=== PATIENT | female | born 1990 | race Caucasian/White ===

== ENCOUNTER 2019-03-04 11:29 | Inpatient (IN) | payer OTHER ==
[2019-03-04 13:41] LABS: Calcium 9.1 mg/dL (8.4-10.2); Potassium 4.8 mmol/L (3.5-5.1); Total Bilirubin 0.4 mg/dL (0.2-1.3); Total Protein 7.2 g/dL (6.3-8.2)
[2019-03-04 14:01] LABS: Partial Thromboplastin Time 27.5 sec (22.0-30.0); Prothrombin Time 10.5 sec (9.0-12.0)
[2019-03-04] MEDS: SODIUM CHLORIDE 0.9% 500 ML 500 ML IV SCH (14:01)
--- NOTE | 2019-03-04 14:04 | XR ---
EXAMINATION TYPE: XR forearm bilateral DATE OF EXAM: 03/04/2019 COMPARISON: NONE HISTORY: Pain Two views of the forearm obtained bilaterally. Within the soft tissues adjacent to the distal radius there is a linear metallic density in the soft tissue suspicious for foreign body. Within the proximal portions of the soft tissues of the left fore arm anterior to the radius there are 2 linear metallic density suspicious for foreign body. Adjacent soft tissue edema may been the basis of infectious etiology. Right forearm demonstrates a linear metallic density overlying the mid to distal soft tissues adjacen t to the ulna and just posterior on the lateral view suspicious for foreign body. No acute fracture or dislocation. No destructive changes. IMPRESSION: 1. Findings are suspicious for multiple foreign bodies as discussed involving both forearms. 2. Diffuse soft tissue edema involving the left forearm suspicious for infection and cellulitis.
[2019-03-04] MEDS ORDERED: LORazepam 2 MG/ML INJ IV STA (14:08)
--- NOTE | 2019-03-04 14:10 | ED ---
General Adult HPI <Cuba Harkins - Last Filed: 03/04/19 15:22> - General Source: patient, RN notes reviewed, old records reviewed Mode of arrival: ambulatory Limitations: no limitations <JasonJessica - Last Filed: 03/04/19 15:59> - General Chief complaint: Skin/Abscess/Foreign Body Stated complaint: Abcess Time Seen by Provider: 03/04/19 12:02 - History of Present Illness Initial comments: 28-year-old female presents emergency department today for evaluation with chief complaint of abscess on bilateral forearms. Patient reports she has history of IV drug use. She is recently has intake to [facility]. Patient has been on clindamycin for abscesses for the past 2 days. Patient reports she arrived to [place] yesterday. Patient states she is detoxing from heroin. Patient reports that she does have a history of endocarditis, she does not feel she has any symptoms or concern for endocarditis. This was on the same in from [facility]. Patient reports that she has a history of a heart transplant and is have the [facility] when she was 19 years old. (Jessica Gomez) - Related Data Home Medications Medication Instructions Recorded Confirmed Ascorbic Acid [Vitamin C] 500 mg PO BID@0600,1700 03/04/19 03/04/19 Aspirin [[place] Aspirin EC] 81 mg PO DAILY 03/04/19 03/04/19 Calcium Citrate/Vitamin D3 1 tab PO DAILY 03/04/19 03/04/19 [Calcitrate + Vit D Caplet] Clindamycin HCl [Cleocin] 300 mg PO QID 03/04/19 03/04/19 Diltiazem HCl [Cardizem CD] 240 mg PO DAILY@0600 03/04/19 03/04/19 Ferrous Sulfate [Iron (65 MG 325 mg PO BID@0600,1700 03/04/19 03/04/19 Elemental)] Furosemide [Lasix] 20 mg PO DAILY PRN 03/04/19 03/04/19 Gabapentin [Neurontin] 300 mg PO TID@0600,1530,2100 03/04/19 03/04/19 Magnesium Oxide [Su] 1,000 mg PO TID@0600,1500,2100 03/04/19 03/04/19 Multivitamins, Thera [Multivitamin 1 tab PO DAILY 03/04/19 03/04/19 (formulary)] Mycophenolate Mofetil [Cellcept] 250 mg PO BID@0600,1700 03/04/19 03/04/19 OXcarbazepine [Trileptal] 600 mg PO BID@0600,1700 03/04/19 03/04/19 Omeprazole 40 mg PO BID@0600,1700 03/04/19 03/04/19 Tacrolimus [Prograf] 3 mg PO DAILY@0600 03/04/19 03/04/19 Tacrolimus [Prograf] 4 mg PO DAILY@1700 03/04/19 03/04/19 Thiamine [Vitamin B-1] 100 mg PO DAILY 03/04/19 03/04/19 Thiamine [Vitamin B-1] 100 mg PO TID@0600,1530,2100 03/04/19 03/04/19 Vilazodone HCl [Viibryd] 40 mg PO DAILY@0600 03/04/19 03/04/19 Vitamin E (Dl,Tocopheryl Acet) 400 unit PO BID@0600,1700 03/04/19 03/04/19 [Vitamin E] Wellbutrin (Unknown Dose) 1 tab PO DAILY@0600 03/04/19 03/04/19 Allergies Allergy/AdvReac Type Severity Reaction Status Date / Time amoxicillin Allergy Unknown Verified 03/04/19 12:01 Childhood haloperidol [From Haldol] Allergy Verified 03/04/19 12:01 Penicillins Allergy Unknown Verified 03/04/19 12:01 Childhood Review of Systems ROS Other: All systems not noted in ROS Statement are negative. <Cuba Harkins - Last Filed: 03/04/19 15:22> ROS Other: All systems not noted in ROS Statement are negative. <Jessica Gomez - Last Filed: 03/04/19 15:59> ROS Statement: Those systems with pertinent positive or pertinent negative responses have been documented in the HPI. Past Medical History History of Any Multi-Drug Resistant Organisms: None Reported Additional Past Surgical History / Comment(s): heart transplant 2012 Past Psychological History: No Psychological Hx Reported Smoking Status: Current every day smoker Past Alcohol Use History: Rare Past Drug Use History: Heroin, Methamphetamine <Jessica Gomez - Last Filed: 03/04/19 15:59> General Exam Limitations: no limitations General appearance: alert, in no apparent distress Head exam: Present: atraumatic, normocephalic, normal inspection Eye exam: Present: normal appearance, PERRL, EOMI. Absent: scleral icterus, conjunctival injection, periorbital swelling ENT exam: Present: normal exam, mucous membranes moist Neck exam: Present: normal inspection. Absent: tenderness, meningismus, lymphadenopathy Respiratory exam: Present: normal lung sounds bilaterally. Absent: respiratory distress, wheezes, rales, rhonchi, stridor Cardiovascular Exam: Present: regular rate, normal rhythm, normal heart sounds. Absent: systolic murmur, diastolic murmur, rubs, gallop, clicks GI/Abdominal exam: Present: soft, normal bowel sounds. Absent: distended, t enderness, guarding, rebound, rigid Extremities exam: Present: normal inspection, full ROM, normal capillary refill, other (Instruct vásquez on bilateral arms. Evidence of cellulitis. No palpable abscess at this time.). Absent: tenderness, pedal edema, joint swelling, calf tenderness Back exam: Present: normal inspection <Jessica Gomez - Last Filed: 03/04/19 15:59> Course Vital Signs 03/04/19 03/04/19 03/04/19 11:42 14:18 15:44 Temperature 97.9 F 97.9 F Pulse Rate 77 74 76 Respiratory 18 18 18 Rate Blood Pressure 133/87 147/88 155/87 O2 Sat by Pulse 100 100 100 Oximetry EKG Findings - EKG Comments: EKG Findings:: EKG performed at 1330 shows sinus with a first-degree AV block. Biatrial nausea. Right bundle-branch block. Left anterior fascicular block. Left ventricular hypertrophy. Ventricular rate 76 bpm. Intervals to 16 ms. Respirations 158 ms. QT QTc is 442/4 and 97 ms. <Jessica Gomez - Last Filed: 03/04/19 15:59> Medical Decision Making - Lab Data Result diagrams: 03/04/19 13:09 03/04/19 13:09 <Cuba Harkins - Last Filed: 03/04/19 15:22> - Lab Data Result diagrams: 03/04/19 13:09 03/04/19 13:09 - Radiology Data Radiology results: report reviewed <Jessica Gomez - Last Filed: 03/04/19 15:59> - Medical Decision Making Patient reevaluated by myself, Dr. Harkins. Patient resting comfortably in bed. Patient does have several areas of cellulitis of her bilateral forearms. X-ray concerning for foreign bodies. Patient updated. Case was discussed with practitioner Jessica. Case also discussed with Dr. naidu, who will admit covering for hospital call with Gen. surgery consult. IV antibiotic's will be started. Patient was on outpatient clindamycin. (Cuba Harkins) This is a 28-year-old female, presents emergency department today from [facility] for her when and methamphetamine abuse. She presents for cellulitis on bilateral forearms and concern for abscess. She's been on clindamycin for 2 days. She complains of some chills but no specific fever this time. She also does have a past medical history of heart transplant. She denies any symptoms or feels that she has any concern for. I did obtain blood cultures. She does have a murmur which is chronic. Patient this time has no palpable abscess to drain on forearms but does have cellulitis. She is on immunosuppressive drugs due to the heart transplant. Discussed that with this concerned Patient may need IV antibiotics and admission. I discussed this with Dr. Harkins discussed with Physician. (Jessica Gomez) - Lab Data Lab Results 03/04/19 03/04/19 03/04/19 Range/Units 13:09 13:09 13:09 WBC 8.2 (3.8-10.6) k/uL RBC 4.13 (3.80-5.40) m/uL Hgb 9.7 L (11.4-16.0) gm/dL Hct 30.5 L (34.0-46.0) % MCV 73.7 L (80.0-100.0) fL MCH 23.5 L (25.0-35.0) pg MCHC 31.9 (31.0-37.0) g/dL RDW 19.7 H (11.5-15.5) % Plt Count 272 (150-450) k/uL Neutrophils % 83 % Lymphocytes % 12 % Monocytes % 3 % Eosinophils % 2 % Basophils % 0 % Neutrophils # 6.8 (1.3-7.7) k/uL Lymphocytes # 1.0 (1.0-4.8) k/uL Monocytes # 0.2 (0-1.0) k/uL Eosinophils # 0.1 (0-0.7) k/uL Basophils # 0.0 (0-0.2) k/uL Hypochromasia Marked Anisocytosis Slight Microcytosis Moderate PT (9.0-12.0) sec INR (<1.2) APTT (22.0-30.0) sec Sodium 137 (137-145) mmol/L Potassium 4.8 (3.5-5.1) mmol/L Chloride 102 (98-107) mmol/L Carbon Dioxide 23 (22-30) mmol/L Anion Gap 12 mmol/L BUN 20 H (7-17) mg/dL Creatinine 1.14 H (0.52-1.04) mg/dL Est GFR (CKD-EPI)AfAm 76 (>60 ml/min/1.73 sqM) Est GFR (CKD-EPI)NonAf 66 (>60 ml/min/1.73 sqM) Glucose 114 H (74-99) mg/dL Plasma Lactic Acid Laurent 1.0 (0.7-2.0) mmol/L Calcium 9.1 (8.4-10.2) mg/dL Total Bilirubin 0.4 (0.2-1.3) mg/dL AST 29 (14-36) U/L ALT 25 (9-52) U/L Alkaline Phosphatase 73 (38-126) U/L Total Protein 7.2 (6.3-8.2) g/dL Albumin 4.0 (3.5-5.0) g/dL Urine Color Urine Appearance (Clear) Urine pH (5.0-8.0) Ur Specific [place] (1.001-1.035) Urine Protein (Negative) Urine Glucose (UA) (Negative) Urine Ketones (Negative) Urine Blood (Negative) Urine Nitrite (Negative) Urine Bilirubin (Negative) Urine Urobilinogen (<2.0) mg/dL Ur Leukocyte Esterase (Negative) Urine RBC (0-5) /hpf Urine WBC (0-5) /hpf Ur Squamous Epith Cells (0-4) /hpf Amorphous Sediment (None) /hpf Urine Bacteria (None) /hpf 03/04/19 03/04/19 Range/Units 13:09 14:06 WBC (3.8-10.6) k/uL RBC (3.80-5.40) m/uL Hgb (11.4-16.0) gm/dL Hct (34.0-46.0) % MCV (80.0-100.0) fL MCH (25.0-35.0) pg MCHC (31.0-37.0) g/dL RDW (11.5-15.5) % Plt Count (150-450) k/uL Neutrophils % % Lymphocytes % % Monocytes % % Eosinophils % % Basophils % % Neutrophils # (1.3-7.7) k/uL Lymphocytes # (1.0-4.8) k/uL Monocytes # (0-1.0) k/uL Eosinophils # (0-0.7) k/uL Basophils # (0-0.2) k/uL Hypochromasia Anisocytosis Microcytosis PT 10.5 (9.0-12.0) sec INR 1.0 (<1.2) APTT 27.5 (22.0-30.0) sec Sodium (137-145) mmol/L Potassium (3.5-5.1) mmol/L Chloride (98-107) mmol/L Carbon Dioxide (22-30) mmol/L Anion Gap mmol/L BUN (7-17) mg/dL Creatinine (0.52-1.04) mg/dL Est GFR (CKD-EPI)AfAm (>60 ml/min/1.73 sqM) Est GFR (CKD-EPI)NonAf (>60 ml/min/1.73 sqM) Glucose (74-99) mg/dL Plasma Lactic Acid Laurent (0.7-2.0) mmol/L Calcium (8.4-10.2) mg/dL Total Bilirubin (0.2-1.3) mg/dL AST (14-36) U/L ALT (9-52) U/L Alkaline Phosphatase (38-126) U/L Total Protein (6.3-8.2) g/dL Albumin (3.5-5.0) g/dL Urine Color Yellow Urine Appearance Cloudy H (Clear) Urine pH 8.0 (5.0-8.0) Ur Specific [place] 1.016 (1.001-1.035) Urine Protein Negative (Negative) Urine Glucose (UA) Negative (Negative) Urine Ketones Negative (Negative) Urine Blood Negative (Negative) Urine Nitrite Negative (Negative) Urine Bilirubin Negative (Negative) Urine Urobilinogen <2.0 (<2.0) mg/dL Ur Leukocyte Esterase Negative (Negative) Urine RBC 1 (0-5) /hpf Urine WBC 1 (0-5) /hpf Ur Squamous Epith Cells 9 H (0-4) /hpf Amorphous Sediment Rare H (None) /hpf Urine Bacteria Rare H (None) /hpf - Radiology Data Biting findings are suspicious for multiple foreign bodies discussed and both forearms. Diffuse soft tissue edema involving the left forearm suspicious for infection and cellulitis. Ultrasound shows diffuse soft tissue edema for chronic bursitis. No definable abscess by ultrasound. (Jessica Gomez) Disposition <Cuba Harkins - Last Filed: 03/04/19 15:22> Is patient prescribed a controlled substance at d/c from ED?: No Time of Disposition: 15:58 <Jessica Gomez - Last Filed: 03/04/19 15:59> Clinical Impression: Cellulitis, IVDU (intravenous drug user), Immunocompromised, Heart transplant recipient Disposition: ADMITTED IP TO THIS HOSP Condition: Stable Referrals: None,Stated [Primary Care Provider] - 1-2 days
[2019-03-04 14:13] LABS: Anisocytosis Slight; Basophils % (A) 0 %; Eosinophils # (A) 0.1 k/uL (0-0.7); Eosinophils % (A) 2 %; HCT 30.5 % (34.0-46.0); HGB 9.7 gm/dL (11.4-16.0); Hypochromasia Marked; Lymphocytes % (A) 12 %; MCH 23.5 pg (25.0-35.0); MCHC 31.9 g/dL (31.0-37.0); MCV 73.7 fL (80.0-100.0); Mean Platelet Volume 5.9; Microcytosis Moderate; Monocytes # (A) 0.2 k/uL (0-1.0); Monocytes % (A) 3 %; Neutrophils # (A) 6.8 k/uL (1.3-7.7); Neutrophils % (A) 83 %; Platelet Count 272 k/uL (150-450); RBC 4.13 m/uL (3.80-5.40); RDW 19.7 % (11.5-15.5); WBC 8.2 k/uL (3.8-10.6)
[2019-03-04 14:14] LABS: Amorphous Sediment,Urine Rare /hpf; Appearance,Urine Cloudy (Clear); Bacteria,Urine Rare /hpf; Bilirubin,Urine Negative (Negative); Blood,Urine Negative (Negative); Color,Urine Yellow; Glucose,Urine (UA) Negative (Negative); Ketones,Urine Negative (Negative); Leukocyte Esterase,Urine Negative (Negative); Nitrite,Urine Negative (Negative); Protein,Urine Negative (Negative); RBC,Urine 1 /hpf (0-5); Specific Gravity,Urine 1.016 (1.001-1.035); Squamous Epithelial Cell,Urine 9 /hpf (0-4); Urobilinogen,Urine <2.0 mg/dL (<2.0); WBC,Urine 1 /hpf (0-5)
--- NOTE | 2019-03-04 14:44 | US ---
EXAMINATION TYPE: US extremity nonvasc mass KATHY DATE OF EXAM: 03/04/2019 COMPARISON: NONE CLINICAL HISTORY: forearm, IVDU abscess. Abscess forearm patient IVDU. No abscess visualized in bilateral forearms. There is diffuse soft tissue edema IMPRESSION: Diffuse soft tissue edema correlate for cellulitis. No definable abscess by ultrasound.
[2019-03-04] MEDS ORDERED: VANCOMYCIN IV PER PHARMACY 1 EACH MISC MISCELLANE PRN ×2 (15:24→17:50)
[2019-03-04] MEDS ORDERED: LEVOFLOXACIN 750MG-D5W PMX 750 MG in DEXTROSE/WATER 1 150ML.BAG IVPB STA (15:25)
[2019-03-04] MEDS ORDERED: VANCOMYCIN 1,250 MG in SODIUM CHLORIDE 0.9% 250 ML IVPB STA (15:32)
[2019-03-04] MEDS ORDERED: ONDANSETRON 4 MG/2 ML VIAL IVP PRN (15:59)
[2019-03-04] MEDS ORDERED: NALOXONE 0.4 MG/ML 1 ML VIAL IV PRN (15:59)
[2019-03-04 17:10] LABS: Reticulocyte % 2.9 % (0.5-2.0)
[2019-03-04 17:17] VITALS: BMI 22.7
[2019-03-04] MEDS: ASCORBIC ACID 500 MG TAB PO SCH (17:37)
[2019-03-04] MEDS: FERROUS SULFATE 325 MG TAB PO SCH (17:37)
[2019-03-04] MEDS: PANTOPRAZOLE 40 MG TABLET PO SCH (17:37)
[2019-03-04] MEDS: NICOTINE 21MG/24HR PATCH TRANSDERM SCH (17:37)
[2019-03-04] MEDS: LORazepam 2 MG/ML INJ IV PRN ×2 (17:38→23:52)
[2019-03-04] MEDS: SODIUM CHLORIDE 0.9% 1,000 ML IV SCH (17:39)
--- NOTE | 2019-03-04 17:47 | P.HPIM ---
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 The patient notes that she has been actively using IV drugs, with her last use 2 days ago (IV heroin and methamphetamine). She notes that she has been at [place] for the last 1-2 days where she noticed areas in both of her arms which became warm, red, and swollen. She notes she has had this in the past and that it is similar to her previous abscesses due to or IV drug use. She denied fever, chills, chest pain, shortness of breath, nausea, or vomiting. She underwent an extensive evaluation in the emergency room with a WBC count of 8.2, hemoglobin of 9.7, platelets 272, sodium 137, potassium 4.8, chloride 102, CO2 23, BUN 20, creatinine 1.14, with lactate 1.0. Forearm x-rays bilaterally revealed multiple foreign bodies, suspicious for needles in both forearms with diffuse soft tissue edema of especially the left forearm suspicious for infection and cellulitis. EKG revealed sinus rhythm with first-degree AV block along with a bifascicular block at 76 bpm. Patient was started on IV vancomycin and was admitted for further management. Review of Systems Pertinent positives and negatives as discussed in HPI, a complete review of systems was performed and all other systems are negative. Past Medical History History of Any Multi-Drug Resistant Organisms: None Reported Additional Past Surgical History / Comment(s): heart transplant 2011 Past Psychological History: No Psychological Hx Reported Smoking Status: Current every day smoker Past Alcohol Use History: Rare Past Drug Use History: Heroin, Methamphetamine - Past Family History Father Family Medical History: Congestive Heart Failure (CHF), Coronary Artery Disease (CAD) Mother Family Medical History: Congestive Heart Failure (CHF), Coronary Artery Disease (CAD) Medications and Allergies Home Medications Medication Instructions Recorded Confirmed Type Ascorbic Acid [Vitamin C] 500 mg PO BID@0600,1700 03/04/19 03/04/19 History Aspirin [[place] Aspirin EC] 81 mg PO DAILY 03/04/19 03/04/19 History Calcium Citrate/Vitamin D3 1 tab PO DAILY 03/04/19 03/04/19 History [Calcitrate + Vit D Caplet] Clindamycin HCl [Cleocin] 300 mg PO QID 03/04/19 03/04/19 History Diltiazem HCl [Cardizem CD] 240 mg PO DAILY@0600 03/04/19 03/04/19 History Ferrous Sulfate [Iron (65 MG 325 mg PO BID@0600,1700 03/04/19 03/04/19 History Elemental)] Furosemide [Lasix] 20 mg PO DAILY PRN 03/04/19 03/04/19 History Gabapentin [Neurontin] 300 mg PO TID@0600,1530,2100 03/04/19 03/04/19 History Magnesium Oxide [Su] 1,000 mg PO TID@0600,1500,2100 03/04/19 03/04/19 History Multivitamins, Thera [Multivitamin 1 tab PO DAILY 03/04/19 03/04/19 History (formulary)] Mycophenolate Mofetil [Cellcept] 250 mg PO BID@0600,1700 03/04/19 03/04/19 History OXcarbazepine [Trileptal] 600 mg PO BID@0600,1700 03/04/19 03/04/19 History Omeprazole 40 mg PO BID@0600,1700 03/04/19 03/04/19 History Tacrolimus [Prograf] 3 mg PO DAILY@0600 03/04/19 03/04/19 History Tacrolimus [Prograf] 4 mg PO DAILY@1700 03/04/19 03/04/19 History Thiamine [Vitamin B-1] 100 mg PO DAILY 03/04/19 03/04/19 History Thiamine [Vitamin B-1] 100 mg PO TID@0600,1530,2100 03/04/19 03/04/19 History Vilazodone HCl [Viibryd] 40 mg PO DAILY@0600 03/04/19 03/04/19 History Vitamin E (Dl,Tocopheryl Acet) 400 unit PO BID@0600,1700 03/04/19 03/04/19 History [Vitamin E] Wellbutrin (Unknown Dose) 1 tab PO DAILY@0600 03/04/19 03/04/19 History Allergies Allergy/AdvReac Type Severity Reaction Status Date / Time amoxicillin Allergy Unknown Verified 03/04/19 12:01 Childhood haloperidol [From Haldol] Allergy Verified 03/04/19 12:01 Penicillins Allergy Unknown Verified 03/04/19 12:01 Childhood Physical Exam Vitals: Vital Signs Temp Pulse Resp BP Pulse Ox 03/04/19 15:44 97.9 F 76 18 155/87 100 03/04/19 14:18 74 18 147/88 100 03/04/19 11:42 97.9 F 77 18 133/87 100 Intake and Output 03/04/19 03/04/19 03/04/19 06:59 14:59 22:59 Other: Weight 65.771 kg General: Somewhat ill appearing disheveled F, appears older than stated age, normal weight Derm: L forearm multiple (3) areas of palpable collections w/ erythema, warmth, and tenderness, L forearm single similar area of collection, radial pulses palpable romaine, fingers warm, no abnormality of the elbows, wrists, or shoulders noted, able to fully flex and extend fingers, full ROM at the elbow and wrist Head: atraumatic, normocephalic, symmetric Eyes: EOMI, no lid lag, anicteric sclera, pupils equal round reactive to light ENT: Nose and ears atraumatic, no thrush, no pharyngeal erythema Neck: No thyromegaly, no cervical lymphadenopathy, trachea midline, supple Mouth: no lip lesion, mucus membranes moist Cardiovascular: S1S2 reg, no murmur, positive posterior tibial pulse bilateral, no edema, capillary refill less than 2 seconds Lungs: CTA bilateral, no rhonchi, no rales , no accessory muscle use Abdominal: soft, nontender to palpation, no guarding, no appreciable organomegaly, normal bowel sounds Ext: no gross muscle atrophy, muscle strength 5 out of 5 in all 4 extremities grossly, no contractures Neuro: CN II-XI grossly intact, light touch intact all 4 extremities, finger to nose within normal limits, Psych: Alert, oriented, appropriate affect Results CBC & Chem 7: 03/04/19 13:09 03/04/19 13:09 Labs: Abnormal Lab Results - Last 24 Hours (Table) 03/04/19 03/04/19 03/04/19 Range/Units 13:09 13:09 14:06 Hgb 9.7 L (11.4-16.0) gm/dL Hct 30.5 L (34.0-46.0) % MCV 73.7 L (80.0-100.0) fL MCH 23.5 L (25.0-35.0) pg RDW 19.7 H (11.5-15.5) % BUN 20 H (7-17) mg/dL Creatinine 1.14 H (0.52-1.04) mg/dL Glucose 114 H (74-99) mg/dL Urine Appearance Cloudy H (Clear) Ur Squamous Epith Cells 9 H (0-4) /hpf Amorphous Sediment Rare H (None) /hpf Urine Bacteria Rare H (None) /hpf Assessment and Plan Plan: Romaine forearm abscesses w/ foreign bodies (needles) in setting of recent IVDU -C/w Vancomycin -Follow up blood cultures -IV fluids -Surgery consult Polysubstance abuse -Advised patient on importance of cessation -Monitor for signs of withdrawals Heart transplant in 2011 due to idiopathic cardiomyopathy -Pt notes compliance with her meds -C/w home meds Microcytic anemia, likely iron def -Check anemia panel -Patient denied noticing any melena or hematochezia -Patient refused to discuss her menses -Pt prescribed ferrous sulfate orally at home LEIA -Possibly due to substance abuse versus dehydration -Continue with IV fluids -Monitor BMP DVT prophylaxis -Heparin Discussed with: Patient Anticipated discharge date: 1-[address]: [place] A total of 40 minutes was spent on the care of this complex patient more than 50% of the time was spent in counseling and care coordination.
[2019-03-04] MEDS: MYCOPHENOLATE MOFETIL 250 MG CAP PO SCH (18:24)
[2019-03-04] MEDS: TACROLIMUS 1 MG CAP PO SCH (18:25)
[2019-03-04] MEDS: OXcarbazepine 300 MG TAB PO SCH (18:25)
[2019-03-04] MEDS: VITAMIN E (DL,TOCOPHERYL ACET) 400 UNIT CAP PO SCH (18:26)
[2019-03-04] MEDS: KETOROLAC 30 MG/ML 1 ML VIAL IVP PRN ×2 (18:55→23:52)
[2019-03-04] MEDS: GABAPENTIN 300 MG CAP PO SCH (20:03)
[2019-03-04] MEDS: MAGNESIUM OXIDE 400 MG TAB PO SCH (20:03)
[2019-03-04] MEDS: VANCOMYCIN 1,250 MG in SODIUM CHLORIDE 0.9% 250 ML IVPB SCH (22:52)
[2019-03-04] MEDS: HEPARIN SODIUM,PORCINE 5,000 UNIT/ML 1 ML VIAL SQ SCH (22:53)
[2019-03-05 00:52] LABS: Ferritin 36.4 ng/mL (10.0-291.0)
[2019-03-05 00:53] LABS: Iron Saturation 7.42 (12.00-45.00)
[2019-03-05] MEDS: SODIUM CHLORIDE 0.9% 1,000 ML IV SCH ×3 (03:16→23:43)
[2019-03-05] MEDS: PANTOPRAZOLE 40 MG TABLET PO SCH ×2 (05:06→16:27)
[2019-03-05] MEDS: MAGNESIUM OXIDE 400 MG TAB PO SCH ×3 (05:06→20:22)
[2019-03-05] MEDS: LORazepam 2 MG/ML INJ IV PRN ×3 (05:06→20:21)
[2019-03-05] MEDS: ASCORBIC ACID 500 MG TAB PO SCH ×2 (05:06→16:27)
[2019-03-05] MEDS: FERROUS SULFATE 325 MG TAB PO SCH ×2 (05:06→16:27)
[2019-03-05] MEDS: GABAPENTIN 300 MG CAP PO SCH ×3 (05:06→20:22)
[2019-03-05] MEDS: DILTIAZEM CD 240 MG CAP.ER.24H PO SCH (05:06)
[2019-03-05] MEDS: VITAMIN E (DL,TOCOPHERYL ACET) 400 UNIT CAP PO SCH ×2 (05:06→16:27)
[2019-03-05] MEDS: buPROPion XL 150 MG TAB.ER.24H PO SCH (05:06)
[2019-03-05] MEDS: OXcarbazepine 300 MG TAB PO SCH ×2 (05:07→17:35)
[2019-03-05] MEDS: MYCOPHENOLATE MOFETIL 250 MG CAP PO SCH ×2 (05:07→17:35)
[2019-03-05] MEDS: TACROLIMUS 1 MG CAP PO SCH ×2 (05:07→17:35)
[2019-03-05] MEDS: VILAZODONE HCL 40 MG PO SCH (05:45)
[2019-03-05] MEDS: NICOTINE 21MG/24HR PATCH TRANSDERM SCH (08:40)
[2019-03-05] MEDS: VANCOMYCIN 1,250 MG in SODIUM CHLORIDE 0.9% 250 ML IVPB SCH ×2 (08:40→16:26)
[2019-03-05] MEDS: ASPIRIN 81 MG PO SCH (08:42)
[2019-03-05] MEDS: MULTIVITAMINS, THERA 1 EACH TAB PO SCH (08:42)
[2019-03-05] MEDS: CALCIUM CARB-VIT D 500MG-200UN 1 EACH TAB PO SCH (08:42)
[2019-03-05] MEDS: THIAMINE 100 MG TAB PO SCH (08:42)
[2019-03-05] MEDS: HEPARIN SODIUM,PORCINE 5,000 UNIT/ML 1 ML VIAL SQ SCH ×2 (08:43→16:26)
--- NOTE | 2019-03-05 12:02 | P.PN ---
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 The patient notes that she has been actively using IV drugs, with her last use 2 days prior to presentation (IV heroin and methamphetamine). She notes that she had been at [place] for 1-2 days where she noticed areas in both of her arms which became warm, red, and swollen. She notes she has had this in the past and that it is similar to her previous abscesses due to or IV drug use. She denied fever, chills, chest pain, shortness of breath, nausea, or vomiting. She underwent an extensive evaluation in the emergency room with a WBC count of 8.2, hemoglobin of 9.7, platelets 272, sodium 137, potassium 4.8, chloride 102, CO2 23, BUN 20, creatinine 1.14, with lactate 1.0. Forearm x-rays bilaterally revealed multiple foreign bodies, suspicious for needles in both forearms with diffuse soft tissue edema of especially the left forearm suspicious for infection and cellulitis. EKG revealed sinus rhythm with first-degree AV block along with a bifascicular block at 76 bpm. Patient was started on IV vancomycin and was admitted for further management. The patient was seen at the bedside on 03/05. She refused vitals throughout the night and refused multiple medications or to speak to some of the staff member. She notes improvement in her forearm pain. Denied any additional complaints. Objective - Vital Signs Vital signs: Vital Signs Temp 98.5 F 03/04/19 19:20 Pulse 73 03/05/19 01:15 Resp 18 03/05/19 01:15 BP 136/75 03/05/19 01:15 Pulse Ox 100 03/05/19 01:15 Intake & Output 03/04/19 03/05/19 03/05/19 18:59 06:59 18:59 Intake Total 1350 Balance 1350 Weight 65.771 kg Intake: Intake, IV Titration 1350 Amount Sodium Chloride 0.9% 1, 1100 000 ml @ 100 mls/hr IV . Q10H [id number] Rx#:[id number] Vancomycin 1,250 mg In 250 Sodium Chloride 0.9% 250 ml @ 125 mls/hr IVPB Q8HR [facility] Rx#:[id number] Other: Voiding Method Toilet Toilet # Voids 3 - Exam General: Somewhat ill appearing female, in NAD, normal weight HEENT: NC/AT, anicteric sclerae, moist conjunctiva, no lid-lag, PERRLA Cardiovascular: S1/S2 wnl, no murmurs, rubs, or gallops Lungs: Clear to auscultation, normal respiratory effort, no accessory muscle use Abdominal: Soft, non-tender, non-distended, no guarding, rebound, or rigidity Skin: Romaine forearm abscesses with improvement from yesterday, radial pulses palpable romaine w/ arm fingers Extremities: No edema or contractures Psychiatric: Alert and oriented to person, place and time, appropriate affect Neuro: CN II-XII grossly intact, Strength 5/5 in all 4 extremities, Speech intact, Sensation to light touch grossly intact throughout - Labs CBC & Chem 7: 03/04/19 13:09 03/04/19 13:09 Labs: Abnormal Lab Results - Last 24 Hours (Table) 03/04/19 03/04/19 03/04/19 Range/Units 13:09 13:09 13:09 Hgb 9.7 L (11.4-16.0) gm/dL Hct 30.5 L (34.0-46.0) % MCV 73.7 L (80.0-100.0) fL MCH 23.5 L (25.0-35.0) pg RDW 19.7 H (11.5-15.5) % Retic Count 2.9 H (0.5-2.0) % BUN 20 H (7-17) mg/dL Creatinine 1.14 H (0.52-1.04) mg/dL Glucose 114 H (74-99) mg/dL Iron (50-170) ug/dL Iron Saturation (12.00-45.00) Urine Appearance (Clear) Ur Squamous Epith Cells (0-4) /hpf Amorphous Sediment (None) /hpf Urine Bacteria (None) /hpf 03/04/19 03/04/19 Range/Units 13:09 14:06 Hgb (11.4-16.0) gm/dL Hct (34.0-46.0) % MCV (80.0-100.0) fL MCH (25.0-35.0) pg RDW (11.5-15.5) % Retic Count (0.5-2.0) % BUN (7-17) mg/dL Creatinine (0.52-1.04) mg/dL Glucose (74-99) mg/dL Iron 23 L (50-170) ug/dL Iron Saturation 7.42 L (12.00-45.00) Urine Appearance Cloudy H (Clear) Ur Squamous Epith Cells 9 H (0-4) /hpf Amorphous Sediment Rare H (None) /hpf Urine Bacteria Rare H (None) /hpf Assessment and Plan Plan: Romaine forearm abscesses w/ foreign bodies (needles) in setting of recent IVDU -C/w Vancomycin -Follow up blood cultures -IV fluids -Surgery consulted, recs pending Polysubstance abuse -Advised patient on importance of cessation -Monitor for signs of withdrawals Heart transplant in 2011 due to idiopathic cardiomyopathy -Pt notes compliance with her meds -C/w home meds Microcytic anemia, likely iron def -C/w home meds: Ferrous sulfate LEIA -Possibly due to substance abuse versus dehydration -Continue with IV fluids -Pt refused further blood work DVT prophylaxis -Heparin Discussed with: Patient Anticipated discharge date: 1-[address]: [place] A total of 30 minutes was spent on the care of this complex patient more than 50% of the time was spent in counseling and care coordination.
[2019-03-05 15:41] VITALS: RESP 16
[2019-03-05] MEDS ORDERED: LEVOFLOXACIN 750MG-D5W PMX 750 MG in DEXTROSE/WATER 1 150ML.BAG IVPB SCH (16:00)
--- NOTE | 2019-03-05 18:34 | P.GSCN ---
History of Present Illness Consult date: 03/05/19 Reason for Consult: Possible arm abscess History of present illness: Is a 28-year-old female with history of substance abuse. The patient was admitted to the hospital for possible bilateral arm abscesses. The patient has had forearm x-rays bilateral revealing multiple foreign bodies suspicious for needles. The patient has a tender lump on her left forearm. 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 cardiomyopathy, current meth and heroin use at [facility] for detox History of Any Multi-Drug Resistant Organisms: None Reported Additional Past Surgical History / Comment(s): heart transplant 2011 Past Anesthesia/Blood Transfusion Reactions: No Reported Reaction Past Psychological History: No Psychological Hx Reported Smoking Status: Current every day smoker Past Alcohol Use History: Rare Past Drug Use History: Heroin, Methamphetamine - Past Family History Father Family Medical History: Congestive Heart Failure (CHF), Coronary Artery Disease (CAD) Mother Family Medical History: Congestive Heart Failure (CHF), Coronary Artery Disease (CAD) Medications and Allergies Home Medications Medication Instructions Recorded Confirmed Type Ascorbic Acid [Vitamin C] 500 mg PO BID@0600,1700 03/04/19 03/04/19 History Aspirin [Milam Aspirin EC] 81 mg PO DAILY 03/04/19 03/04/19 History Calcium Citrate/Vitamin D3 1 tab PO DAILY 03/04/19 03/04/19 History [Calcitrate + Vit D Caplet] Clindamycin HCl [Cleocin] 300 mg PO QID 03/04/19 03/04/19 History Diltiazem HCl [Cardizem CD] 240 mg PO DAILY@0600 03/04/19 03/04/19 History Ferrous Sulfate [Iron (65 MG 325 mg PO BID@0600,1700 03/04/19 03/04/19 History Elemental)] Furosemide [Lasix] 20 mg PO DAILY PRN 03/04/19 03/04/19 History Gabapentin [Neurontin] 300 mg PO TID@0600,1530,2100 03/04/19 03/04/19 History Magnesium Oxide [Su] 1,000 mg PO TID@0600,1500,2100 03/04/19 03/04/19 History Multivitamins, Thera [Multivitamin 1 tab PO DAILY 03/04/19 03/04/19 History (formulary)] Mycophenolate Mofetil [Cellcept] 250 mg PO BID@0600,1700 03/04/19 03/04/19 History OXcarbazepine [Trileptal] 600 mg PO BID@0600,1700 03/04/19 03/04/19 History Omeprazole 40 mg PO BID@0600,1700 03/04/19 03/04/19 History Tacrolimus [Prograf] 3 mg PO DAILY@0600 03/04/19 03/04/19 History Tacrolimus [Prograf] 4 mg PO DAILY@1700 03/04/19 03/04/19 History Thiamine [Vitamin B-1] 100 mg PO DAILY 03/04/19 03/04/19 History Thiamine [Vitamin B-1] 100 mg PO TID@0600,1530,2100 03/04/19 03/04/19 History Vilazodone HCl [Viibryd] 40 mg PO DAILY@0600 03/04/19 03/04/19 History Vitamin E (Dl,Tocopheryl Acet) 400 unit PO BID@0600,1700 03/04/19 03/04/19 History [Vitamin E] Wellbutrin (Unknown Dose) 1 tab PO DAILY@0600 03/04/19 03/04/19 History Allergies Allergy/AdvReac Type Severity Reaction Status Date / Time amoxicillin Allergy Unknown Verified 03/04/19 12:01 Childhood haloperidol [From Haldol] Allergy Verified 03/04/19 12:01 Penicillins Allergy Unknown Verified 03/04/19 12:01 Childhood Surgical - Exam Vital Signs Temp Pulse Resp BP Pulse Ox 97.9 F 77 18 133/87 100 03/04/19 11:42 03/04/19 11:42 03/04/19 11:42 03/04/19 11:42 03/04/19 11:42 - General well developed, no distress - Eyes PERRL - ENT normal pinna - Neck no masses - Respiratory normal expansion - Cardiovascular Rhythm: regular - Abdomen Abdomen: soft, non tender - Integumentary 3 cm mass left forearm. There is known to any induration. The mass is tender. Results - Labs 03/04/19 13:09 03/04/19 13:09 Abnormal Lab Results - Last 24 Hours (Table) 03/04/19 Range/Units 13:09 Iron 23 L (50-170) ug/dL Iron Saturation 7.42 L (12.00-45.00) Microbiology - Last 24 Hours (Table) 03/04/19 13:09 Blood Culture - Preliminary Blood No Growth after 24 hours - Imaging Additional studies: Needle foreign-body on forearm x-ray Assessment and Plan Assessment: Probable subcutaneous abscess on left forearm. Patient will be observed. If this worsens she'll undergo incision and drainage.
[2019-03-05] MEDS ORDERED: LORazepam 2 MG/ML INJ IV ONE (18:45)
[2019-03-05] MEDS: KETOROLAC 30 MG/ML 1 ML VIAL IVP PRN (21:56)
[2019-03-05 22:54] VITALS: BP 116/72
[2019-03-06] MEDS: HEPARIN SODIUM,PORCINE 5,000 UNIT/ML 1 ML VIAL SQ SCH ×2 (00:39→09:26)
[2019-03-06] MEDS: VANCOMYCIN 1,250 MG in SODIUM CHLORIDE 0.9% 250 ML IVPB SCH ×2 (00:43→09:21)
[2019-03-06 07:34] VITALS: PULSE 72; TEMP 97.9
[2019-03-06 08:34] LABS: Anisocytosis Moderate; HCT 36.3 % (34.0-46.0); HGB 10.6 gm/dL (11.4-16.0); Hypochromasia Marked; MCH 23.2 pg (25.0-35.0); MCHC 29.4 g/dL (31.0-37.0); Mean Platelet Volume 6.5; Microcytosis Slight; Platelet Count 334 k/uL (150-450); RBC 4.58 m/uL (3.80-5.40); RDW 20.6 % (11.5-15.5); WBC 6.1 k/uL (3.8-10.6)
[2019-03-06 08:43] LABS: Calcium 9.4 mg/dL (8.4-10.2); MCV 79.1 fL (80.0-100.0); Potassium 4.9 mmol/L (3.5-5.1)
[2019-03-06] MEDS: LORazepam 2 MG/ML INJ IV PRN (09:18)
[2019-03-06] MEDS: TACROLIMUS 1 MG CAP PO SCH (09:24)
[2019-03-06] MEDS: MYCOPHENOLATE MOFETIL 250 MG CAP PO SCH (09:24)
[2019-03-06] MEDS: buPROPion XL 150 MG TAB.ER.24H PO SCH (09:24)
[2019-03-06] MEDS: MAGNESIUM OXIDE 400 MG TAB PO SCH (09:25)
[2019-03-06] MEDS: GABAPENTIN 300 MG CAP PO SCH (09:25)
[2019-03-06] MEDS: DILTIAZEM CD 240 MG CAP.ER.24H PO SCH (09:25)
[2019-03-06] MEDS: OXcarbazepine 300 MG TAB PO SCH (09:25)
[2019-03-06] MEDS: PANTOPRAZOLE 40 MG TABLET PO SCH (09:25)
[2019-03-06] MEDS: FERROUS SULFATE 325 MG TAB PO SCH (09:25)
[2019-03-06] MEDS: MULTIVITAMINS, THERA 1 EACH TAB PO SCH (09:26)
[2019-03-06] MEDS: NICOTINE 21MG/24HR PATCH TRANSDERM SCH (09:26)
[2019-03-06] MEDS: VITAMIN E (DL,TOCOPHERYL ACET) 400 UNIT CAP PO SCH (09:26)
[2019-03-06] MEDS: CALCIUM CARB-VIT D 500MG-200UN 1 EACH TAB PO SCH (09:26)
[2019-03-06] MEDS: ASPIRIN 81 MG PO SCH (09:26)
[2019-03-06] MEDS: THIAMINE 100 MG TAB PO SCH (09:26)
[2019-03-06] MEDS: VILAZODONE HCL 40 MG PO SCH (09:26)
[2019-03-06] MEDS: ASCORBIC ACID 500 MG TAB PO SCH (10:00)
--- NOTE | 2019-03-06 12:42 | P.PN ---
Progress Note - Text Progress Note Date: 03/06/19 The patient's forearm swelling appears to be due to foreign body. There is no evidence of infection. The patient does not wish to have anything done with this. She may be discharged home.
--- NOTE | 2019-03-06 14:31 | P.DS ---
Providers Date of admission: 03/04/19 15:22 Expected date of discharge: 03/06/19 Attending physician: Nimesh Mary MD Consults: 03/04/19 15:23 Consult Physician Urgent Consulting Provider: Emory Joy Consult Reason/Comments: Cellulitis/abscess, foreign bodies Do you want consulting provider notified?: Yes Primary care physician: Stated None Hospital Course: Discharge Diagnosis: 1. Foreign body reaction due to retained needles and bilateral forearm, no evidence of infection on physical exam, no abscess on ultrasound, no elevated white blood cell count, no fevers 2. 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 Acute kidney injury 4. History of IV drug abuse with withdrawal 5. Microcytic anemia, likely iron deficiency Hospital Course: Patient is a 28-year-old female with past medical history of heart transplant due to idiopathic cardiomyopathy in 2011, polysubstance abuse including IV drug use with heroin and methamphetamines, iron deficiency anemia, and prior cocaine abuse who presented to the ER due to swelling of bilateral forearms. She had been using IV heroin and methamphetamine approximately 2 days ago. She then was at [facility] where she noticed swelling in both arms. She's had similar episodes in the past and developed abscesses. On admission s he was noted to have a white blood cell count of 8.2 and hemoglobin of 9.7. She also was felt to have probable acute kidney injury with a creatinine of 1.14. Bilateral forearm x-rays were obtained which showed multiple foreign bodies suspicious for needles in both arms as well as soft tissue edema in the left forearm. EKG was done which revealed first-degree AV block. She was started on IV vancomycin was admitted for further management. Ultrasound was obtained which showed diffuse soft tissue edema correlate for cellulitis but no abscess. She was seen by general surgery who monitored the area. There was no warmth, redness, or fluctuance noted. Appears unlikely foreign body reaction. She did not have any elevated white blood cell count or elevated temperatures during her hospital stay. She was determined stable to return to [facility]. She will complete her outpatient course of clindamycin. She should return to the emergency department if she develops a fever, worsening redness or swelling of her arms, or severe altered mentation. She should follow up with her primary care practitioner in 3-5 days for repeat evaluation of the enlarged areas. It was felt this was likely a foreign body reaction and not a true infection. Patient seen and examined at bedside. Withdrawn and will not communicate. Does not want her arms evaluated and states they are fine and much better than on admission. Denies any chest pain. Denies any diarrhea or nausea. Wants to be left alone. Vital signs reviewed and stable. General: non toxic, no distress, appears at stated age Derm: warm, dry, one ping-pong ball sized area of swelling noted in her left upper extremity without warmth or erythema. Patient refuses to let me examine her right upper extremity Head: atraumatic, normocephalic, symmetric Eyes: EOMI, no lid lag, anicteric sclera Mouth: no lip lesion, mucus membranes moist Cardiovascular: S1S2 reg, no murmur, positive posterior tibial pulse bilateral, Lungs: CTA bilateral, no rhonchi, no rales , no accessory muscle use Abdominal: soft, nontender to palpation, no guarding, no appreciable organomegaly Ext: no gross muscle atrophy, no edema, no contractures Neuro: CN II-XI grossly intact, no focal neuro deficits Psych: Alert, oriented, appropriate affect A total of 35 minutes of time were spent preparing this complex discharge summary . Patient Condition at Discharge: Stable Plan - Discharge Summary Discharge Rx Participant: No New Discharge Prescriptions: Continue Gabapentin [Neurontin] 300 mg PO TID@0600,1530,2100 Tacrolimus [Prograf] 4 mg PO DAILY@1700 Tacrolimus [Prograf] 3 mg PO DAILY@0600 Mycophenolate Mofetil [Cellcept] 250 mg PO BID@0600,1700 Aspirin [Bent Aspirin EC] 81 mg PO DAILY Thiamine [Vitamin B-1] 100 mg PO TID@0600,1530,2100 Calcium Citrate/Vitamin D3 [Calcitrate + Vit D Caplet] 1 tab PO DAILY Omeprazole 40 mg PO BID@0600,1700 Magnesium Oxide [Su] 1,000 mg PO TID@0600,1500,2100 Thiamine [Vitamin B-1] 100 mg PO DAILY Multivitamins, Thera [Multivitamin (formulary)] 1 tab PO DAILY OXcarbazepine [Trileptal] 600 mg PO BID@0600,1700 Ferrous Sulfate [Iron (65 MG Elemental)] 325 mg PO BID@0600,1700 Clindamycin HCl [Cleocin] 300 mg PO QID Vilazodone HCl [Viibryd] 40 mg PO DAILY@0600 Wellbutrin (Unknown Dose) 1 tab PO DAILY@0600 Ascorbic Acid [Vitamin C] 500 mg PO BID@0600,1700 Diltiazem HCl [Cardizem CD] 240 mg PO DAILY@0600 Vitamin E (Dl,Tocopheryl Acet) [Vitamin E] 400 unit PO BID@0600,1700 Furosemide [Lasix] 20 mg PO DAILY PRN PRN Reason: Edema Discharge Medication List Ascorbic Acid [Vitamin C] 500 mg PO BID@0600,1700 03/04/19 [History] Aspirin [Bent Aspirin EC] 81 mg PO DAILY 03/04/19 [History] Calcium Citrate/Vitamin D3 [Calcitrate + Vit D Caplet] 1 tab PO DAILY 03/04/19 [History] Clindamycin HCl [Cleocin] 300 mg PO QID 03/04/19 [History] Diltiazem HCl [Cardizem CD] 240 mg PO DAILY@0600 03/04/19 [History] Ferrous Sulfate [Iron (65 MG Elemental)] 325 mg PO BID@0600,1700 03/04/19 [History] Furosemide [Lasix] 20 mg PO DAILY PRN 03/04/19 [History] Gabapentin [Neurontin] 300 mg PO TID@0600,1530,2100 03/04/19 [History] Magnesium Oxide [Su] 1,000 mg PO TID@0600,1500,2100 03/04/19 [History] Multivitamins, Thera [Multivitamin (formulary)] 1 tab PO DAILY 03/04/19 [History] Mycophenolate Mofetil [Cellcept] 250 mg PO BID@0600,1700 03/04/19 [History] OXcarbazepine [Trileptal] 600 mg PO BID@0600,1700 03/04/19 [History] Omeprazole 40 mg PO BID@0600,1700 03/04/19 [History] Tacrolimus [Prograf] 3 mg PO DAILY@0600 03/04/19 [History] Tacrolimus [Prograf] 4 mg PO DAILY@1700 03/04/19 [History] Thiamine [Vitamin B-1] 100 mg PO DAILY 03/04/19 [History] Thiamine [Vitamin B-1] 100 mg PO TID@0600,1530,2100 03/04/19 [History] Vilazodone HCl [Viibryd] 40 mg PO DAILY@0600 03/04/19 [History] Vitamin E (Dl,Tocopheryl Acet) [Vitamin E] 400 unit PO BID@0600,1700 03/04/19 [History] Wellbutrin (Unknown Dose) 1 tab PO DAILY@0600 03/04/19 [History] Follow up Appointment(s)/Referral(s): None,Stated [Primary Care Provider] - 1-2 days
[2019-03-06] MEDS ORDERED: VANCOMYCIN 1,250 MG in SODIUM CHLORIDE 0.9% 250 ML IVPB SCH (21:00)
== END 2019-03-06 16:07 | disposition home or self-care (01) | DRG 565 ==
LOC: EC 11:29 → 4SSUR 15:22
PROVIDERS: ADMIT Internal Medicine; ATTEND Internal Medicine
DX: M79.5 Residual foreign body in soft tissue (principal); N17.9 Acute kidney failure, unspecified; Z94.1 Heart transplant status; I42.9 Cardiomyopathy, unspecified; I45.2 Bifascicular block; F11.23 Opioid dependence with withdrawal; D50.9 Iron deficiency anemia, unspecified; F15.10 Other stimulant abuse, uncomplicated; F17.210 Nicotine dependence, cigarettes, uncomplicated; Z82.49 Family history of ischemic heart disease and other diseases of the circulatory system; I44.0 Atrioventricular block, first degree; Z79.82 Long term (current) use of aspirin; Z79.899 Other long term (current) drug therapy; Z86.79 Personal history of other diseases of the circulatory system; Z88.0 Allergy status to penicillin; Z88.8 Allergy status to other drugs, medicaments and biological substances; E86.0 Dehydration; Z71.51 Drug abuse counseling and surveillance of drug abuser
CPT/HCPCS: 36415; 76882; 80048; 80053; 80202; 81001; 82728; 83540; 83550; 83605; 85025; 85027; 85045; 85610; 85730; 87040; 93005; 96361; 96365; 96375; 99285

== ENCOUNTER 2019-03-07 20:59 | Emergency (ER) | payer OTHER ==
[2019-03-07 22:00] VITALS: RESP 18
--- NOTE | 2019-03-07 22:34 | ED ---
General Adult HPI - General Chief complaint: Shortness of Breath Stated complaint: abcess Time Seen by Provider: 03/07/19 22:03 Source: patient Mode of arrival: ambulatory Limitations: no limitations - History of Present Illness Initial comments: 28-year-old female with history of idiopathic cardiomyopathy status post heart transplant in 2011 [facility], patient states that she then became addicted to pain medications eventually methamphetamines and heroin. Patient states this is causing her to have a "leaky valve". Patient states that she is compliant with her antirejection medications. Patient presents today for pain all over, SOB since Sunday. Patient states that she has had endocarditis in the past she states that she does not feel she is similar symptoms today denies fevers. Patient denies any chest pain. She states that she has had some mild shortness of breath, and pain with inspiration in the lungs. Patient denies any lower extremity swelling. Patient denies any painful nodules of the fingers are painless nodules throughout the body patient denies any bleeding under the fingernails or abnormalities of the white the eyes. Patient states that she has been withdrawing from methamphetamines and heroin she states that she was taken to rehab on Sunday with her last use of intravenous drugs on Sunday. She states she has been withdrawing she was nauseous she is unable to sleep she states she has pain all over. Patient also states that she has abscesses of the left hand as well as the left forearm. Patient states she was recently admitted and discharged on antibiotics for this complaint. Patient denies any hemoptysis, history of septic emboli, strokes, myocardial infarction, diabetes, high blood pressur. Patient denies back pain, diarrhea, vomiting. Patient states she has not been eating secondary to the withdrawal symptoms. Patient VS stable on arrival. No growth on blood culture obtained 03/22. - Related Data Home Medications Medication Instructions Recorded Confirmed Ascorbic Acid [Vitamin C] 500 mg PO BID@0600,1700 03/04/19 03/07/19 Aspirin [[place] Aspirin EC] 81 mg PO DAILY@0600 03/04/19 03/07/19 Calcium Citrate/Vitamin D3 1 tab PO DAILY@0600 03/04/19 03/07/19 [Calcitrate + Vit D Caplet] Clindamycin HCl [Cleocin] 300 mg PO QID 03/04/19 03/07/19 Diltiazem HCl [Cardizem CD] 240 mg PO DAILY@0600 03/04/19 03/07/19 Ferrous Sulfate [Iron (65 MG 325 mg PO BID@0600,1700 03/04/19 03/07/19 Elemental)] Furosemide [Lasix] 20 mg PO DAILY PRN 03/04/19 03/07/19 Gabapentin [Neurontin] 300 mg PO TID@0600,1530,2100 03/04/19 03/07/19 Magnesium Oxide [Su] 1,000 mg PO TID@0600,1500,209903/04/19 03/07/19 Multivitamins, Thera [Multivitamin 1 tab PO DAILY 03/04/19 03/07/19 (formulary)] Mycophenolate Mofetil [Cellcept] 250 mg PO BID@0600,1700 03/04/19 03/07/19 OXcarbazepine [Trileptal] 600 mg PO BID@0600,1700 03/04/19 03/07/19 Omeprazole 40 mg PO BID@0600,1700 03/04/19 03/07/19 Tacrolimus [Prograf] 3 mg PO DAILY@0600 03/04/19 03/07/19 Tacrolimus [Prograf] 4 mg PO DAILY@209903/04/19 03/07/19 Thiamine [Vitamin B-1] 100 mg PO TID@0600,1530,209903/04/19 03/07/19 Vilazodone HCl [Viibryd] 40 mg PO DAILY@0600 03/04/19 03/07/19 Vitamin E (Dl,Tocopheryl Acet) 400 unit PO BID@0600,1700 03/04/19 03/07/19 [Vitamin E] Acetaminophen Tab [Tylenol Tab] 650 mg PO Q4H PRN 03/07/19 03/07/19 Calcium/Magnesium 1000mg/500mg 1 - 2 tab PO TID PRN 03/07/19 03/07/19 Chlorpheniramine Maleate 4 mg PO Q4H PRN 03/07/19 03/07/19 [Chlor-Trimeton] Ibuprofen [Motrin] 600 mg PO Q6H PRN 03/07/19 03/07/19 Ondansetron HCl [Zofran] 8 mg PO Q6H PRN 03/07/19 03/07/19 Zofran 2mg/Ml Im 4 mg IM Q6H PRN 03/07/19 03/07/19 buPROPion XL [Wellbutrin Xl] 150 mg PO DAILY@0600 03/07/19 03/07/19 cloNIDine HCL [Catapres] 0.1 - 0.3 mg PO Q4H PRN 03/07/19 03/07/19 traZODone HCL 50 - 150 mg PO HS 03/07/19 03/07/19 Allergies Allergy/AdvReac Type Severity Reaction Status Date / Time amoxicillin Allergy Unknown Verified 03/07/19 23:20 Childhood haloperidol [From Haldol] Allergy Unknown Verified 03/07/19 23:20 Penicillins Allergy Unknown Verified 03/07/19 23:20 Childhood Review of Systems ROS Statement: Those systems with pertinent positive or pertinent negative responses have been documented in the HPI. ROS Other: All systems not noted in ROS Statement are negative. Past Medical History Additional Past Medical History / Comment(s): heart transplant 2011 for idiopa thic cardiomyopathy, current meth and heroin use at [facility] for detox History of Any Multi-Drug Resistant Organisms: None Reported Additional Past Surgical History / Comment(s): heart transplant 2012 Past Anesthesia/Blood Transfusion Reactions: No Reported Reaction Past Psychological History: No Psychological Hx Reported Smoking Status: Current every day smoker Past Alcohol Use History: Rare Past Drug Use History: Heroin, Methamphetamine - Past Family History Father Family Medical History: Congestive Heart Failure (CHF), Coronary Artery Disease (CAD) Mother Family Medical History: Congestive Heart Failure (CHF), Coronary Artery Disease (CAD) General Exam - General Exam Comments Initial Comments: General: The patient is awake and alert Eye: Pupils are equal, round and reactive to light, extra-ocular movements are intact. No nystagmus. There is normal conjunctiva bilaterally. No signs of icterus. Ears, nose, mouth and throat: There are moist mucous membranes and no oral lesions. Neck: The neck is supple, there is no tenderness or JVD. Cardiovascular: There is a regular rate and rhythm. Murmur present. No rub or gallop is appreciated. Respiratory: Lungs are clear to auscultation, respirations are non-labored, b reath sounds are equal. No wheezes, stridor, rales, or rhonchi. Gastrointestinal: Soft, non-distended, non-tender abdomen without masses or organomegaly noted. There is no rebound or guarding present. No CVA tenderness. Bowel sounds are unremarkable. Musculoskeletal: Normal ROM, no tenderness. Strength 5/5. Sensation intact. Radial pulses equal bilaterally 2+. Neurological: A&O x 3. CN II-XII intact grossly, There are no obvious motor or sensory deficits. Coordination appears grossly intact. Speech is normal. Skin: Skin is warm and dry and no rashes. No Osler nodes or janeway lesions appreciated. No splinter hemorrhages. Raised erythematous area on the dorsum of the left hand as well as the ventral aspect of the left forearm. two 1cm abscess adjacent to each other on the left forearm ventral aspect no surrounding expansive erythema mild localized redness, tender to touch. Three is a 1x1cm dorsal aspect left hand tender mild erythema no fluctulance, induration noted. No swellling of the digits, or forced flexe positions or limitations in ROM of the digits of the left hand. Psychiatric: Cooperative, appropriate mood & affect, normal judgment. Limitations: no limitations Course Vital Signs 03/07/19 03/07/19 03/08/19 21:57 22:12 00:13 Temperature 97.6 F 97.7 F Pulse Rate 75 68 Respiratory 18 18 18 Rate Blood Pressure 131/86 121/81 O2 Sat by Pulse 100 99 Oximetry 03/08/19 03/08/19 01:40 02:55 Temperature 97.7 F Pulse Rate 69 67 Respiratory 18 18 Rate Blood Pressure 131/71 125/72 O2 Sat by Pulse 100 97 Oximetry EKG Findings - EKG Comments: EKG Findings:: Ventricular rate 69 bpm, GA interval 212 ms, QS duration 156 ms, QT/QTC 440/471 ms. This is sinus rhythm with first-degree AV block. There is noted left atrial enlargement with left axis. Patient does have some QRS widening. Patient EKG compared to that of Mar 04, 2019 there is no significant change. Dr. Allen personally reviewd EKG as did I. Procedures - Incision & Drainage Consent Obtained: verbal consent Indication: abscess left forearm Site: upper extremity I&D Cleaning Method: Iodine Sterile Field Used?: Yes Scalpel Used: #11 Needle Aspiration Performed?: Yes (purulent drainage small amount of blood) Irrigation Performed?: No I&D Drainage Obtained: Pus, Blood Culture Obtained?: Yes Patient Tolerated Procedure: well, no complications Medical Decision Making - Medical Decision Making 28-year-old female who is currently at [facility] for methamphetamine and heroin, currently going through withdrawals. patient stating pain all over, nausea, insomnia, no appetite. Patient states that she also has abscess of the left forearm and is taking antibiotics. Patient is a transplant patient--hx of endocarditis. Denies symptoms similar to that today. Patient states she feels like she is withdrawing--SOB from the pain. Patient is not hypoxic no signs of respiratory distress, lungs clear no signs of fluid overload. Patient EKG appears stable in comparison with previous. Afebrile. Previous blood culture (-) 03/04/19, 3 days prior. Abscesses were I&D/needle aspirated sent for culture. Tolerated procedures well. Patient has no leukocytosis. She is compliant with rejection medications. patient CXR shows no signs of heart failure. BNP 1000 known heart disease from valvular disease per patient-- no baseline for comparison. Troponin (-). Patient dimer elevated, CTA (-); no septic emboli or PE. Patient given ativan states it alleviated symptoms resting comfortably. I discussed the case in detail reviewing patient PMH, surgical history, medications, labs, imaging with my attending provider. At this time I feel patient symptoms are related to withdrawal. Patient VS stable relieft with ativan. Dr. Aleln recommended discharge with PCP f/u. Instructed patient to continue antibiotics as previously prescribed. Patient is agreeable with discharge to rehabilitation facility. Discharged appearing well. - Lab Data Result diagrams: 03/07/19 22:54 03/07/19 22:54 Lab Results 03/07/19 03/07/19 03/07/19 Range/Units 22:54 22:54 22:54 WBC 7.0 (3.8-10.6) k/uL RBC 4.52 (3.80-5.40) m/uL Hgb 10.7 L (11.4-16.0) gm/dL Hct 34.7 (34.0-46.0) % MCV 76.8 L (80.0-100.0) fL MCH 23.7 L (25.0-35.0) pg MCHC 30.8 L (31.0-37.0) g/dL RDW 20.0 H (11.5-15.5) % Plt Count 331 (150-450) k/uL Neutrophils % 63 % Lymphocytes % 28 % Monocytes % 5 % Eosinophils % 1 % Basophils % 1 % Neutrophils # 4.4 (1.3-7.7) k/uL Lymphocytes # 1.9 (1.0-4.8) k/uL Monocytes # 0.3 (0-1.0) k/uL Eosinophils # 0.1 (0-0.7) k/uL Basophils # 0.0 (0-0.2) k/uL Hypochromasia Marked Anisocytosis Moderate Microcytosis Moderate D-Dimer (<0.60) mg/L FEU Sodium 136 L (137-145) mmol/L Potassium 4.7 (3.5-5.1) mmol/L Chloride 105 (98-107) mmol/L Carbon Dioxide 21 L (22-30) mmol/L Anion Gap 10 mmol/L BUN 26 H (7-17) mg/dL Creatinine 1.57 H (0.52-1.04) mg/dL Est GFR (CKD-EPI)AfAm 51 (>60 ml/min/1.73 sqM) Est GFR (CKD-EPI)NonAf 44 (>60 ml/min/1.73 sqM) Glucose 87 (74-99) mg/dL Plasma Lactic Acid Laurent 0.9 (0.7-2.0) mmol/L Calcium 9.1 (8.4-10.2) mg/dL Total Bilirubin 0.2 (0.2-1.3) mg/dL AST 20 (14-36) U/L ALT 20 (9-52) U/L Alkaline Phosphatase 70 (38-126) U/L Troponin I (0.000-0.034) ng/mL NT-Pro-B Natriuret Pep pg/mL Total Protein 7.2 (6.3-8.2) g/dL Albumin 3.9 (3.5-5.0) g/dL Urine Color Urine Appearance (Clear) Urine pH (5.0-8.0) Ur Specific [place] (1.001-1.035) Urine Protein (Negative) Urine Glucose (UA) (Negative) Urine Ketones (Negative) Urine Blood (Negative) Urine Nitrite (Negative) Urine Bilirubin (Negative) Urine Urobilinogen (<2.0) mg/dL Ur Leukocyte Esterase (Negative) Urine RBC (0-5) /hpf Urine WBC (0-5) /hpf Ur Squamous Epith Cells (0-4) /hpf Urine Bacteria (None) /hpf Hyaline Casts (0-2) /lpf Urine Mucus (None) /hpf Urine HCG, Qual (Not Detectd) 03/07/19 03/07/19 03/07/19 Range/Units 22:54 22:54 22:54 WBC (3.8-10.6) k/uL RBC (3.80-5.40) m/uL Hgb (11.4-16.0) gm/dL Hct (34.0-46.0) % MCV (80.0-100.0) fL MCH (25.0-35.0) pg MCHC (31.0-37.0) g/dL RDW (11.5-15.5) % Plt Count (150-450) k/uL Neutrophils % % Lymphocytes % % Monocytes % % Eosinophils % % Basophils % % Neutrophils # (1.3-7.7) k/uL Lymphocytes # (1.0-4.8) k/uL Monocytes # (0-1.0) k/uL Eosinophils # (0-0.7) k/uL Basophils # (0-0.2) k/uL Hypochromasia Anisocytosis Microcytosis D-Dimer 0.57 (<0.60) mg/L FEU Sodium (137-145) mmol/L Potassium (3.5-5.1) mmol/L Chloride (98-107) mmol/L Carbon Dioxide (22-30) mmol/L Anion Gap mmol/L BUN (7-17) mg/dL Creatinine (0.52-1.04) mg/dL Est GFR (CKD-EPI)AfAm (>60 ml/min/1.73 sqM) Est GFR (CKD-EPI)NonAf (>60 ml/min/1.73 sqM) Glucose (74-99) mg/dL Plasma Lactic Acid Laurent (0.7-2.0) mmol/L Calcium (8.4-10.2) mg/dL Total Bilirubin (0.2-1.3) mg/dL AST (14-36) U/L ALT (9-52) U/L Alkaline Phosphatase (38-126) U/L Troponin I <0.012 (0.000-0.034) ng/mL NT-Pro-B Natriuret Pep 1030 pg/mL Total Protein (6.3-8.2) g/dL Albumin (3.5-5.0) g/dL Urine Color Urine Appearance (Clear) Urine pH (5.0-8.0) Ur Specific [place] (1.001-1.035) Urine Protein (Negative) Urine Glucose (UA) (Negative) Urine Ketones (Negative) Urine Blood (Negative) Urine Nitrite (Negative) Urine Bilirubin (Negative) Urine Urobilinogen (<2.0) mg/dL Ur Leukocyte Esterase (Negative) Urine RBC (0-5) /hpf Urine WBC (0-5) /hpf Ur Squamous Epith Cells (0-4) /hpf Urine Bacteria (None) /hpf Hyaline Casts (0-2) /lpf Urine Mucus (None) /hpf Urine HCG, Qual (Not Detectd) 03/08/19 03/08/19 Range/Units 00:06 00:06 WBC (3.8-10.6) k/uL RBC (3.80-5.40) m/uL Hgb (11.4-16.0) gm/dL Hct (34.0-46.0) % MCV (80.0-100.0) fL MCH (25.0-35.0) pg MCHC (31.0-37.0) g/dL RDW (11.5-15.5) % Plt Count (150-450) k/uL Neutrophils % % Lymphocytes % % Monocytes % % Eosinophils % % Basophils % % Neutrophils # (1.3-7.7) k/uL Lymphocytes # (1.0-4.8) k/uL Monocytes # (0-1.0) k/uL Eosinophils # (0-0.7) k/uL Basophils # (0-0.2) k/uL Hypochromasia Anisocytosis Microcytosis D-Dimer (<0.60) mg/L FEU Sodium (137-145) mmol/L Potassium (3.5-5.1) mmol/L Chloride (98-107) mmol/L Carbon Dioxide (22-30) mmol/L Anion Gap mmol/L BUN (7-17) mg/dL Creatinine (0.52-1.04) mg/dL Est GFR (CKD-EPI)AfAm (>60 ml/min/1.73 sqM) Est GFR (CKD-EPI)NonAf (>60 ml/min/1.73 sqM) Glucose (74-99) mg/dL Plasma Lactic Acid Laurent (0.7-2.0) mmol/L Calcium (8.4-10.2) mg/dL Total Bilirubin (0.2-1.3) mg/dL AST (14-36) U/L ALT (9-52) U/L Alkaline Phosphatase (38-126) U/L Troponin I (0.000-0.034) ng/mL NT-Pro-B Natriuret Pep pg/mL Total Protein (6.3-8.2) g/dL Albumin (3.5-5.0) g/dL Urine Color Yellow Urine Appearance Clear (Clear) Urine pH 5.5 (5.0-8.0) Ur Specific [place] 1.033 (1.001-1.035) Urine Protein 1+ H (Negative) Urine Glucose (UA) Negative (Negative) Urine Ketones Negative (Negative) Urine Blood Negative (Negative) Urine Nitrite Negative (Negative) Urine Bilirubin Negative (Negative) Urine Urobilinogen <2.0 (<2.0) mg/dL Ur Leukocyte Esterase Negative (Negative) Urine RBC 1 (0-5) /hpf Urine WBC 2 (0-5) /hpf Ur Squamous Epith Cells 5 H (0-4) /hpf Urine Bacteria Rare H (None) /hpf Hyaline Casts 3 H (0-2) /lpf Urine Mucus Occasional H (None) /hpf Urine HCG, Qual Not Detected (Not Detectd) Disposition Clinical Impression: Abscess of arm, left, Methamphetamine dependence, Opioid withdrawal Disposition: HOME SELF-CARE Condition: Good Instructions (If sedation given, give patient instructions): Abscess (ED), Opioid Withdrawal (ED) Additional Instructions: Please use medication as discussed, continue antibiotics. Please follow-up with family doctor in the next 2 days. Please return to emergency room if the symptoms increase or worsen or for any other concerns. Is patient prescribed a controlled substance at d/c from ED?: No Referrals: None,Stated [Primary Care Provider] - [facility] days [facility]-2 days Time of Disposition: 01:24
[2019-03-07] MEDS ORDERED: LORazepam 2 MG/ML INJ IV STA (22:55)
[2019-03-07 23:17] LABS: Anisocytosis Moderate; Basophils % (A) 1 %; Eosinophils # (A) 0.1 k/uL (0-0.7); Eosinophils % (A) 1 %; HCT 34.7 % (34.0-46.0); HGB 10.7 gm/dL (11.4-16.0); Hypochromasia Marked; Lymphocytes # (A) 1.9 k/uL (1.0-4.8); Lymphocytes % (A) 28 %; MCH 23.7 pg (25.0-35.0); MCHC 30.8 g/dL (31.0-37.0); MCV 76.8 fL (80.0-100.0); Mean Platelet Volume 5.8; Microcytosis Moderate; Monocytes # (A) 0.3 k/uL (0-1.0); Monocytes % (A) 5 %; Neutrophils # (A) 4.4 k/uL (1.3-7.7); Neutrophils % (A) 63 %; Platelet Count 331 k/uL (150-450); RBC 4.52 m/uL (3.80-5.40)
[2019-03-07 23:51] LABS: Albumin 3.9 g/dL (3.5-5.0); Calcium 9.1 mg/dL (8.4-10.2); Potassium 4.7 mmol/L (3.5-5.1); Total Bilirubin 0.2 mg/dL (0.2-1.3); Total Protein 7.2 g/dL (6.3-8.2)
--- NOTE | 2019-03-08 00:05 | XR ---
EXAMINATION TYPE: XR forearm LT DATE OF EXAM: 03/07/2019 COMPARISON: 03/04/2019 HISTORY: Foreign body. Soft tissue swelling. TECHNIQUE: 2 views FINDINGS: There is soft tissue swelling over the anterior proximal forearm. There is small rounded victoriano cency that could be air bubble. Soft tissue swelling measures 2.5 cm. Radius and ulna appear intact. There are 2 tiny linear metallic appearing foreign bodies projected in the soft tissues of the medial proximal forearm unchanged. IMPRESSION: Soft tissue swelling and soft tissue air bubble. Swelling is more focal than last exam. T iny metallic foreign bodies on the medial aspect of the proximal forearm.
--- NOTE | 2019-03-08 00:06 | XR ---
EXAMINATION TYPE: XR chest 1V DATE OF EXAM: 03/07/2019 COMPARISON: NONE HISTORY: Cough TECHNIQUE: Single frontal view of the chest is obtained. FINDINGS: There is no heart failure nor confluent pneumonic infiltrate. There are sternal wires. Lef t ventricle appears enlarged. There is no pleural effusion. IMPRESSION: Enlarged heart. No heart failure.
[2019-03-08 00:16] VITALS: TEMP 97.7
[2019-03-08] MEDS ORDERED: LORazepam 2 MG/ML INJ IV STA (00:17)
[2019-03-08] MEDS ORDERED: SODIUM CHLORIDE 0.9% 500 ML 500 ML IV ONE (00:38)
[2019-03-08 00:44] LABS: Appearance,Urine Clear (Clear); Bacteria,Urine Rare /hpf; Bilirubin,Urine Negative (Negative); Blood,Urine Negative (Negative); Color,Urine Yellow; Glucose,Urine (UA) Negative (Negative); Hyaline Casts,Urine 3 /lpf (0-2); Ketones,Urine Negative (Negative); Leukocyte Esterase,Urine Negative (Negative); Mucus,Urine Occasional /hpf; Nitrite,Urine Negative (Negative); PH, Urine 5.5 (5.0-8.0); Protein,Urine 1+ (Negative); RBC,Urine 1 /hpf (0-5); Specific Gravity,Urine 1.033 (1.001-1.035); Squamous Epithelial Cell,Urine 5 /hpf (0-4); Urobilinogen,Urine <2.0 mg/dL (<2.0); WBC,Urine 2 /hpf (0-5)
--- NOTE | 2019-03-08 01:00 | CT ---
EXAMINATION TYPE: CT angio chest DATE OF EXAM: 03/08/2019 12:41 AM COMPARISON: None HISTORY: Chest pain CT DLP: 243.80 mGycm Automated exposure control for dose reduction was used. CONTRAST: CTA scan of the thorax is performed with IV Contrast, patient injected with 60 mL of Isovue 370, pulm onary embolism protocol. . There are 3-D post processed images. FINDINGS: The lungs are clear of infiltrate. There is no pleural effusion or pneumothorax. Heart size is fairly normal. Mediastinum is normal. There is no mediastinal adenopathy. There are no hilar masses. Thorac ic aorta shows no sign of aneurysm or dissection. There is normal contrast opacification of the pulmonary arteries. I see no filling defect. Ascending aorta measures 3.4 cm. Thoracic spine is intact. There are sternal wires. The ribs appear intact. IMPRESSION: NEGATIVE EXAM. NO EVIDENCE OF PULMONARY EMBOLISM.
[2019-03-08 02:56] VITALS: BP 125/72; PULSE 67
== END 2019-03-08 02:56 | disposition home or self-care (01) ==
LOC: EC 20:59
DX: L02.414 Cutaneous abscess of left upper limb (principal); F11.23 Opioid dependence with withdrawal; F15.20 Other stimulant dependence, uncomplicated; I42.9 Cardiomyopathy, unspecified; F17.200 Nicotine dependence, unspecified, uncomplicated; Z79.82 Long term (current) use of aspirin; Z79.899 Other long term (current) drug therapy; Z94.1 Heart transplant status; Z86.79 Personal history of other diseases of the circulatory system; Z88.0 Allergy status to penicillin; Z88.8 Allergy status to other drugs, medicaments and biological substances
CPT/HCPCS: 10160; 99285; 96374; 96376; 96361; 36415; 93005; 85379; 83880; 80053; 80197; 83605; 84484; 85025; 81001; 81025; 87040; 87070; 87205; 87077; 87186; 73090; 71045; 71275; J2060 ×2; Q9967; 99284